=== PATIENT | male | born 1945 | race Caucasian/White ===

== ENCOUNTER → 2020-08-16 09:28 | Outpatient (BNVA) | payer MEDICARE, SELFPAY | PROVIDERS: PCP Internal Medicine; Visit Provider Internal Medicine | DX: Z86.73 Personal history of transient ischemic attack (TIA), and cerebral infarction without residual deficits (principal); Z51.81 Encounter for therapeutic drug level monitoring; Z79.01 Long term (current) use of anticoagulants | CPT/HCPCS: 85610 ==

== ENCOUNTER → 2020-09-13 09:29 | Outpatient (BNVA) | payer MEDICARE, BC, SELFPAY | PROVIDERS: PCP Internal Medicine; Visit Provider Internal Medicine | DX: Z86.73 Personal history of transient ischemic attack (TIA), and cerebral infarction without residual deficits (principal); Z51.81 Encounter for therapeutic drug level monitoring; Z79.01 Long term (current) use of anticoagulants | CPT/HCPCS: 85610; 99211 ==

== ENCOUNTER → 2020-10-12 09:41 | Outpatient (BNVA) | payer MEDICARE, BC, SELFPAY | PROVIDERS: PCP Internal Medicine; Visit Provider Internal Medicine | DX: Z86.73 Personal history of transient ischemic attack (TIA), and cerebral infarction without residual deficits (principal); Z51.81 Encounter for therapeutic drug level monitoring; Z79.01 Long term (current) use of anticoagulants | CPT/HCPCS: 85610; 99211 ==

== ENCOUNTER → 2020-11-09 09:50 | Outpatient (BNVA) | payer MEDICARE, BC, SELFPAY | PROVIDERS: PCP Internal Medicine; Visit Provider Internal Medicine | DX: Z86.73 Personal history of transient ischemic attack (TIA), and cerebral infarction without residual deficits (principal); Z79.01 Long term (current) use of anticoagulants; Z51.81 Encounter for therapeutic drug level monitoring | CPT/HCPCS: 85610; 99211 ==

== ENCOUNTER 2020-12-01 | Outpatient (REF) | payer MEDICARE, BC, SELFPAY | END 2020-12-01 00:01 | disposition home or self-care (01) | LOC: HO.VC | PROVIDERS: Visit Provider Internal Medicine | DX: Z23 Encounter for immunization (principal) | CPT/HCPCS: 0011A ==

== ENCOUNTER → 2020-12-21 09:45 | Outpatient (BNVA) | payer MEDICARE, BC, SELFPAY | PROVIDERS: PCP Internal Medicine; Visit Provider Internal Medicine | DX: Z86.73 Personal history of transient ischemic attack (TIA), and cerebral infarction without residual deficits (principal); Z51.81 Encounter for therapeutic drug level monitoring; Z79.01 Long term (current) use of anticoagulants | CPT/HCPCS: 85610; 99211 ==

== ENCOUNTER 2020-12-28 | Outpatient (REF) | payer MEDICARE, BC, SELFPAY | END 2020-12-28 00:01 | disposition home or self-care (01) | LOC: HO.VC | PROVIDERS: Visit Provider Internal Medicine | DX: Z23 Encounter for immunization (principal) | CPT/HCPCS: 0012A ==

== ENCOUNTER → 2021-01-18 09:57 | Outpatient (BNVA) | payer MEDICARE, BC, SELFPAY | PROVIDERS: PCP Internal Medicine; Visit Provider Internal Medicine | DX: Z86.73 Personal history of transient ischemic attack (TIA), and cerebral infarction without residual deficits (principal); Z51.81 Encounter for therapeutic drug level monitoring; Z79.01 Long term (current) use of anticoagulants | CPT/HCPCS: 85610; 99211 ==

== ENCOUNTER 2021-01-25 11:38 | Outpatient (REF) | payer MEDICARE, BC, SELFPAY ==
[2021-01-25 13:38] LABS: Thyroid Stimulating Hormone 1.54 uIU/mL (0.32-4.0)
== END 2021-01-25 11:39 | disposition home or self-care (01) ==
LOC: HO.10HDL 11:38
PROVIDERS: Visit Provider Internal Medicine
DX: E03.9 Hypothyroidism, unspecified (principal)
CPT/HCPCS: 36415; 84443

== ENCOUNTER → 2021-02-15 09:59 | Outpatient (BNVA) | payer MEDICARE, BC, SELFPAY | PROVIDERS: PCP Internal Medicine; Visit Provider Internal Medicine | DX: Z86.73 Personal history of transient ischemic attack (TIA), and cerebral infarction without residual deficits (principal); Z79.01 Long term (current) use of anticoagulants; Z51.81 Encounter for therapeutic drug level monitoring | CPT/HCPCS: 85610; 99211 ==

== ENCOUNTER → 2021-03-15 09:46 | Outpatient (BNVA) | payer MEDICARE, BC, SELFPAY | PROVIDERS: PCP Internal Medicine; Visit Provider Internal Medicine | DX: Z86.73 Personal history of transient ischemic attack (TIA), and cerebral infarction without residual deficits (principal); Z51.81 Encounter for therapeutic drug level monitoring; Z79.01 Long term (current) use of anticoagulants | CPT/HCPCS: 85610; 99211 ==

== ENCOUNTER 2021-04-19 09:27 | Outpatient (REF) | payer MEDICARE, BC, SELFPAY ==
[2021-04-19 13:21] LABS: MANUAL DIFF FLAG NO
[2021-04-19 13:32] LABS: Basophils Percent Auto 0.4 % (0-2); Eosinophils Absolute Auto 0.1 X10*3/uL (0.0-0.4); Eosinophils Percent Auto 1.3 % (0-4); Hematocrit 38.6 % (42-52); Hemoglobin 12.5 g/dl (14.0-18.0); Imm Gran Abs Auto 0.03 X10*3/uL (0.00-0.03); Imm Gran Pct Auto 0.4 % (0.0-0.4); Lymphocytes Absolute Auto 1.5 X10*3/uL (1.2-4.9); Lymphocytes Percent Auto 17.7 % (20-40); Mean Corpuscular HGB Conc 32.4 g/dl (31.0-36.0); Mean Corpuscular Hemoglobin 29.6 pg (27.0-33.0); Mean Corpuscular Volume 91.3 fL (80-98); Mean Platelet Volume 11.9 fL (9.4-12.4); Monocytes Absolute Auto 0.8 X10*3/uL (0.1-1.2); Monocytes Percent Auto 9.4 % (2-11); Neutrophils Absolute Auto 6.1 X10*3/uL (2.0-8.3); Neutrophils Percent Auto 70.8 % (45-73); Platelet Count 189 X10*3/uL (160-400); Red Blood Count 4.23 X10*6/uL (4.60-5.80); Red Cell Distribution Width 13.2 % (11.0-16.0); White Blood Count 8.5 X10*3/uL (4.8-10.8)
[2021-04-19 14:01] LABS: Alanine Aminotransferase 11 U/L (0-40); Albumin Level 3.8 g/dL (3.5-5.0); Alkaline Phosphatase 60 U/L (39-117); Anion Gap 12 (12-20); Aspartate Amino Transferase 19 U/L (5-37); Bilirubin Total 0.5 mg/dL (0.0-1.0); Blood Urea Nitrogen 15 mg/dL (9-16); Calcium 8.5 mg/dL (8.4-10.2); Carbon Dioxide 26 mmol/L (22-29); Chloride 106 mmol/L (96-108); Cholesterol 126 mg/dL; Estimated Glomerular Filt Rate > 60; Glucose Fasting 97 mg/dL (60-99); HDL Cholesterol 39 mg/dL; LDL Cholesterol Calculated 77 mg/dl; Potassium 4.2 mmol/L (3.3-5.1); Sodium 140 mmol/L (135-145); Total Protein 6.5 g/dL (6.5-8.0); Triglycerides 54 mg/dL
== END 2021-04-19 09:28 | disposition home or self-care (01) ==
LOC: HO.10HDL 09:27
PROVIDERS: PCP Internal Medicine; Visit Provider Internal Medicine
DX: Z86.73 Personal history of transient ischemic attack (TIA), and cerebral infarction without residual deficits (principal); Z00.00 Encounter for general adult medical examination without abnormal findings; E11.9 Type 2 diabetes mellitus without complications; Z51.81 Encounter for therapeutic drug level monitoring; Z79.01 Long term (current) use of anticoagulants
CPT/HCPCS: 36415; 80053; 80061; 85025; 85610; 99211

== ENCOUNTER → 2021-04-26 09:39 | Outpatient (BNVA) | payer MEDICARE, BC, SELFPAY | PROVIDERS: PCP Internal Medicine; Visit Provider Internal Medicine | DX: Z86.73 Personal history of transient ischemic attack (TIA), and cerebral infarction without residual deficits (principal); Z51.81 Encounter for therapeutic drug level monitoring; Z79.01 Long term (current) use of anticoagulants | CPT/HCPCS: 85610; 99211 ==

== ENCOUNTER → 2021-05-10 09:57 | Outpatient (BNVA) | payer MEDICARE, BC, SELFPAY | PROVIDERS: PCP Internal Medicine; Visit Provider Internal Medicine | DX: Z86.73 Personal history of transient ischemic attack (TIA), and cerebral infarction without residual deficits (principal); Z51.81 Encounter for therapeutic drug level monitoring; Z79.01 Long term (current) use of anticoagulants | CPT/HCPCS: 85610; 99211 ==

== ENCOUNTER 2021-05-17 10:25 | Outpatient (REF) | payer MEDICARE, BC, SELFPAY ==
[2021-05-17 17:47] LABS: Urine Cytology See Pathology rpt
== END 2021-05-17 10:26 | disposition home or self-care (01) ==
LOC: HO.LNP 10:25
PROVIDERS: PCP Internal Medicine
DX: N40.1 Benign prostatic hyperplasia with lower urinary tract symptoms (principal); R35.1 Nocturia; R35.0 Frequency of micturition; R31.9 Hematuria, unspecified; I69.391 Dysphagia following cerebral infarction; F17.210 Nicotine dependence, cigarettes, uncomplicated
CPT/HCPCS: 51798; 88112; 99202

== ENCOUNTER → 2021-05-31 10:11 | Outpatient (BNVA) | payer MEDICARE, BC, SELFPAY | PROVIDERS: PCP Internal Medicine; Visit Provider Internal Medicine | DX: Z86.73 Personal history of transient ischemic attack (TIA), and cerebral infarction without residual deficits (principal); Z51.81 Encounter for therapeutic drug level monitoring; Z79.01 Long term (current) use of anticoagulants | CPT/HCPCS: 85610; 99211 ==

== ENCOUNTER → 2021-06-21 10:29 | Outpatient (BNVA) | payer MEDICARE, BC, SELFPAY | PROVIDERS: PCP Internal Medicine; Visit Provider Internal Medicine | DX: Z86.73 Personal history of transient ischemic attack (TIA), and cerebral infarction without residual deficits (principal); Z51.81 Encounter for therapeutic drug level monitoring; Z79.01 Long term (current) use of anticoagulants | CPT/HCPCS: 85610; 99211 ==

== ENCOUNTER 2021-06-25 08:51 | Emergency (ER) | payer MEDICARE, BC, SELFPAY ==
--- NOTE | ~2021-06-25 | CT_ITS ---
EXAMINATION: CT ABDOMEN AND PELVIS WITHOUT CONTRAST CLINICAL INFORMATION: Rule out abdominal aortic aneurysm COMPARISON: None TECHNIQUE: Multidetector volumetric imaging was performed from the superior aspect of the liver through the pubic symphysis. Sagittal and coronal reformatted images were obtained on the technologist's workstation. This CT examination was performed using dose optimization techniques as appropriate, variously including the following: *Automated exposure control *Adjustment of mA and/or kV according to patient size (this includes techniques or standardized protocols for targeted exams where dose is matched to indication/reason for exam; i.e. extremities or head) *Use of iterative reconstruction technique DLP: 954.32 mGy-cm FINDINGS: LUNG BASES: The visualized lung bases are unremarkable. No pleural or pericardial effusion. LIVER, GALLBLADDER, AND BILIARY TREE: The liver is normal in size, shape, and attenuation. No focal hepatic lesion or biliary ductal dilatation is present. The gallbladder is unremarkable with no evidence of radiopaque gallstones, gallbladder wall thickening, or obvious pericholecystic inflammatory changes. PANCREAS: Unremarkable. SPLEEN: Unremarkable. ADRENAL GLANDS: Unremarkable. KIDNEYS AND URETERS: The right kidney is normal in size, shape, and attenuation. No hydronephrosis, hydroureter, or calculi seen. No perinephric stranding. The left kidney is displaced anteriorly by large retroperitoneal hematoma. No hydronephrosis. No collecting system calculi. Region of thinning from probable infarct noted. BLADDER: Decompressed GASTROINTESTINAL TRACT: The small and large bowel are unremarkable. The appendix is unremarkable. Small amount of free fluid seen within the pelvis. ABDOMINAL WALL: No significant hernia is appreciated. LYMPH NODES: Normal. VASCULAR: There is a 10 x 9 cm infrarenal abdominal aortic aneurysm approximately 12 cm in length present with calcified aortoiliac plaque. The abdominal aortic aneurysm appears ruptured along its left wall with a large retroperitoneal hematoma present which is displacing retroperitoneal structures with the kidney being displaced anteriorly. The hematoma measures approximately 12 x 8.5 x 17 cm in size. PELVIC VISCERA: Prostate calcification present. OSSEOUS STRUCTURES: No suspicious destructive bony lesions identified. There is multilevel degenerative disc disease present. CT/CT abdomen pelvis wo con IMPRESSION: 10 x 9 cm ruptured infrarenal abdominal aortic aneurysm with large left retroperitoneal hematoma. This critical result was discussed with Dr. Linda at 9:40 AM on June 25, 2021 and it was ascertained that the content and urgency of the report was understood at the time of direct communication.
--- NOTE | ~2021-06-25 | CT_ITS ---
EXAMINATION: CT CHEST WITHOUT CONTRAST CLINICAL INFORMATION: Shortness of breath. COMPARISON: None TECHNIQUE: Multidetector volumetric CT imaging of the chest was done. Axial MIP volume rendering provided. Sagittal and coronal reformatted images were obtained. This CT examination was performed using dose optimization techniques as appropriate, variously including the following: *Automated exposure control *Adjustment of mA and/or kV according to patient size (this includes techniques or standardized protocols for targeted exams where dose is matched to indication/reason for exam; i.e. extremities or head) *Use of iterative reconstruction technique DLP: 424.9 mGy-cm FINDINGS: EARTH MOVING MACHINE OPERATOR: Unremarkable. LUNGS: The lungs are clear with no evidence of inflammation or nodules. Biapical pleuroparenchymal scar is present. MEDIASTINUM: Atherosclerotic disease including coronary artery calcifications are present. Mild ascending thoracic aneurysm is noted. PLEURA: There is no pleural effusion. No pleural mass or thickening. AXILLA: No lymphadenopathy. UPPER ABDOMEN: Abnormal. Evidence of abdominal aortic rupture is present. This refer to the separate CT of the abdomen report for full details. OSSEOUS STRUCTURES: Unremarkable. CT/CT chest wo con IMPRESSION: No acute intrathoracic pathology. Evidence of abdominal aortic rupture is present within the visualized part of the upper abdomen. Please refer to the separate CT of the abdomen report for full details.
--- NOTE | ~2021-06-25 | CT_ITS ---
EXAMINATION: CT HEAD WITHOUT CONTRAST (STROKE PROTOCOL) CLINICAL INFORMATION: Stroke protocol. COMPARISON: August 19, 2018 TECHNIQUE: Contiguous axial imaging was performed from the skull base to vertex without intravenous administration of contrast. This CT examination was performed using dose optimization techniques as appropriate, variously including the following: *Automated exposure control *Adjustment of mA and/or kV according to patient size (this includes techniques or standardized protocols for targeted exams where dose is matched to indication/reason for exam; i.e. extremities or head) *Use of iterative reconstruction technique DLP: 750 mGy-cm FINDINGS: There is no intracranial hemorrhage, hematoma, or extra-axial fluid collection. The ventricles are normal in size. There is no hydrocephalus, edema, or mass effect. 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 Small superior left cerebellar infarct again seen. Lacunar infarct involving the anterior limb of the right internal capsule again seen.. There is no acute infarct or mass lesion. The calvarium appears intact. There is no pneumocephalus or orbital emphysema. The visualized sinuses and middle ears and mastoid air cells show no significant mucosal thickening. There are no air-fluid levels. CT/CT head for stroke IMPRESSION: No acute intracranial pathology. 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 This critical result was discussed with Dr. Buitrago at 9:10 AM hours on June 25, 2021. It was ascertained that the content and urgency of the report was understood at the time of direct communication.
[2021-06-25 09:03] LABS: Glucose, Whole Blood 161 mg/dL (60-115)
[2021-06-25] MEDS: 0.9 % Sodium Chloride 1,000 ML 999 ML IVCONT (09:05)
--- NOTE | 2021-06-25 09:17 | PC.NURSE ---
@0930 [facility] PT TX LINE @ DR HEBERT REQUEST TIMUR ANSWERS,TAKES PT NFO, AND ASKS TO SPEAK WITH DR HEBERT, DR HEBERT TAKES OVER CALL @[phone] DR HEBERT REQUEST CALL OUT TO [facility] FOR [facility] TRANSPORT TO [facility] ER
[2021-06-25 09:19] VITALS: BP 108/74; PULSE 72; RESP 16; BMI 24.0
[2021-06-25 09:23] LABS: Prothrombin Time Whole Bld POC 25.1 sec (11.1-13.5); ~PT, ~INR - Anti Coag Clinic 2.1 (0.9-1.1)
--- NOTE | 2021-06-25 09:24 | PC.NURSE ---
@ [phone] CALL OUT TO [facility] TO CHECK ETA @ REQUEST OF JORJE LA TELLS ME THEY ARE ON SCENE
[2021-06-25 09:29] LABS: MANUAL DIFF FLAG NO
[2021-06-25] MEDS: fentaNYL citrate/PF 100 MCG/2 ML VIAL 50 MCG IVPUSH (09:29)
--- NOTE | 2021-06-25 09:36 | ED.GENADULT ---
HPI - General Adult General Chief complaint: Abdominal Pain Stated complaint: stroke Time Seen by Provider: 06/25/21 08:56 Source: EMS Mode of arrival: EMS History of Present Illness HPI narrative: The patient arrived via ambulance to [place] with a question of a CVA, the patch was acute CVA upon arrival he was diaphoretic ,color ashen,abdomen exam showed tenderness in the left. The patient was directed to the CT scanner right away and the scan showed large ruptured AAA Onset (ago): hour(s) (1) Location: abdomen Radiation: abdomen and flank Severity: severe Severity scale (1-10): 8 Quality: aching Pain Consistency: constant Exacerbating factors: none Related Data Home Medications Medication Instructions Recorded Confirmed ketorolac 0.5 % eye drops 0 drp OPHTHALMIC (EYE) 09/13/20 05/19/21 aspirin 81 mg tablet,delayed 81 mg PO DAILY 01/25/21 05/19/21 release (Adult Low Dose Aspirin) multivit,calc,mins-folic 240 1 tab PO DAILY 01/25/21 05/19/21 mcg-vit K1 30 mcg-lycopene 300 mcg tablet (One-A-Day Men's Complete) Previous Rx's Medication Instructions Recorded lisinopril 20 mg tablet 20 mg PO DAILY #90 tab 04/06/21 lovastatin 40 mg tablet 40 mg PO DAILY #90 tab 04/06/21 warfarin 5 mg tablet 5 mg PO DAILY #90 tab 04/06/21 Allergies Allergy/AdvReac Type Severity Reaction Status Date / Time No Known Allergies Allergy Verified 06/21/21 10:30 [No Known Allergies*] Review of Systems Review of Systems: Yes all other systems are reviewed and are negative Cardiovascular: Cardiovascular: Reports no additional cardiovascular complaints Neurologic: Reports system reviewed and no additional complaints, except as documented REPLACED BY [facility] Past Medical History Medical History Atrial fibrillation Hypertension Surgical History H/O left knee surgery H/O rectal polypectomy History of surgery Family History Family History Father Lung cancer Mother Breast cancer Social History Social History Housing: House Alcohol intake: current Alcohol intake frequency: holidays/special occasions only Patient Tobacco Use Status: Current everyday Tobacco user Tobacco use type: Cigarette Cigarettes Per Day: 20 e-Cigarette/Vaping Use: Never Used Second Hand Smoke Exposure: No Advance Directives: No Advance Directives Information Provided: No service: No Current occupational status: retired Physical Exam Vital Signs: Vital Signs: Last Vital Signs Pulse 72 06/25/21 09:19 Resp 16 06/25/21 09:19 BP 108/74 06/25/21 09:19 Body Mass Index 24.0 Const: General: alert, anxious and diaphoretic HENMT: Head: Yes normal to inspection Neck: Neck: Yes normal visual inspection and Yes full ROM Thyroid: Thyroid normal Carotids: normal carotid upstroke Chest: Chest palpation & inspection: normal inspection of the chest Resp: Effort & Inspection: normal respiratory effort Auscultation: clear to auscultation bilaterally Cardio: Jugular venous distension: no JVD Rate: regular rate Rhythm: regular rhythm GI: Inspection: Yes distended Palpation (GI): Tenderness to palpation present (GI) Auscultation: normal bowel sounds Skin: General skin exam: no rashes or lesions noted and elasticity normal Lesions: no lesions Rashes: no rashes Course Course Course Narrative: I review personally the scan while still in CT, CT showed to my reading 10 cm AAA we immediately called the health promotion officer to transport to [facility];I called also [facility] Emergency Department he was accepted in transfer by Dr. Belle at the time of the transfer he was awake ,alert with a good blood pressure, he is anticoagulated with Coumadin we were going to give him Kcentra but was not available right away and we did not want to delay the transfer to wait 10 more minutes in order to the pharmacy to mix the Kcentra,given the life threatening Emergency Medical Decision Making Lab Data Result diagrams: 06/25/21 09:24 06/25/21 09:24 Labs: Lab Results 06/25/21 06/25/21 06/25/21 Range/Units 08:59 09:19 09:24 WBC 16.0 H (4.8-10.8) X10*3/uL RBC 3.69 L (4.60-5.80) X10*6/uL Hgb 11.2 L (14.0-18.0) g/dl Hct 34.3 L (42-52) % MCV 93.0 (80-98) fL MCH 30.4 (27.0-33.0) pg MCHC 32.7 (31.0-36.0) g/dl RDW 13.7 (11.0-16.0) % Plt Count 201 (160-400) X10*3/uL MPV 11.4 (9.4-12.4) fL Immature Gran % (Auto) 0.8 H (0.0-0.4) % Neut % (Auto) 83.5 H (45-73) % Lymph % (Auto) 9.8 L (20-40) % [place] % (Auto) 5.1 (2-11) % Eos % (Auto) 0.5 (0-4) % Baso % (Auto) 0.3 (0-2) % Lymph # (Auto) 1.6 (1.2-4.9) X10*3/uL [place] # (Auto) 0.8 (0.1-1.2) X10*3/uL Eos # (Auto) 0.1 (0.0-0.4) X10*3/uL Baso # (Auto) 0.0 (0.0-0.2) X10*3/uL Abs Immat Gran (auto) 0.12 H (0.00-0.03) X10*3/uL Absolute Neuts (auto) 13.4 H (2.0-8.3) X10*3/uL Absolute Nucleated RBC 0.000 (0.0-0.012) X10*3/uL Nucleated RBC % (auto) 0.0 (0.0-0.2) /100WBC PT (9.9-13.0) SEC Whole Blood PT 25.1 H (11.1-13.5) sec INR (0.9-1.1) Whole Blood INR 2.1 H (0.9-1.1) Sodium (135-145) mmol/L Potassium (3.3-5.1) mmol/L Chloride (96-108) mmol/L Carbon Dioxide (22-29) mmol/L Anion Gap (12-20) BUN (9-16) mg/dL Creatinine (0.5-1.4) mg/dL Estim Creat Clear Calc Estimated GFR POC Glucose 161 H (60-115) mg/dL Random Glucose (60-115) mg/dL Calcium (8.4-10.2) mg/dL Total Bilirubin (0.0-1.0) mg/dL AST (5-37) U/L ALT (0-40) U/L Alkaline Phosphatase (39-117) U/L Troponin I High Sens (<3.5-35.0) ng/L Total Protein (6.5-8.0) g/dL Albumin (3.5-5.0) g/dL Lipase (8-78) U/L 06/25/21 06/25/21 06/25/21 Range/Units 09:24 09:25 09:25 WBC (4.8-10.8) X10*3/uL RBC (4.60-5.80) X10*6/uL Hgb (14.0-18.0) g/dl Hct (42-52) % MCV (80-98) fL MCH (27.0-33.0) pg MCHC (31.0-36.0) g/dl RDW (11.0-16.0) % Plt Count (160-400) X10*3/uL MPV (9.4-12.4) fL Immature Gran % (Auto) (0.0-0.4) % Neut % (Auto) (45-73) % Lymph % (Auto) (20-40) % [place] % (Auto) (2-11) % Eos % (Auto) (0-4) % Baso % (Auto) (0-2) % Lymph # (Auto) (1.2-4.9) X10*3/uL [place] # (Auto) (0.1-1.2) X10*3/uL Eos # (Auto) (0.0-0.4) X10*3/uL Baso # (Auto) (0.0-0.2) X10*3/uL Abs Immat Gran (auto) (0.00-0.03) X10*3/uL Absolute Neuts (auto) (2.0-8.3) X10*3/uL Absolute Nucleated RBC (0.0-0.012) X10*3/uL Nucleated RBC % (auto) (0.0-0.2) /100WBC PT 30.5 H (9.9-13.0) SEC Whole Blood PT (11.1-13.5) sec INR 2.6 H (0.9-1.1) Whole Blood INR (0.9-1.1) Sodium 141 (135-145) mmol/L Potassium 4.3 (3.3-5.1) mmol/L Chloride 107 (96-108) mmol/L Carbon Dioxide 26 (22-29) mmol/L Anion Gap 12 (12-20) BUN 20 H (9-16) mg/dL Creatinine 1.20 (0.5-1.4) mg/dL Estim Creat Clear Calc 52.3 Estimated GFR 59 POC Glucose (60-115) mg/dL Random Glucose 230 H (60-115) mg/dL Calcium 8.3 L (8.4-10.2) mg/dL Total Bilirubin 0.3 (0.0-1.0) mg/dL AST 16 (5-37) U/L ALT 13 (0-40) U/L Alkaline Phosphatase 52 (39-117) U/L Troponin I High Sens 9.1 (<3.5-35.0) ng/L Total Protein 5.7 L (6.5-8.0) g/dL Albumin 3.4 L (3.5-5.0) g/dL Lipase 23 (8-78) U/L Imaging Data CT scan - abdomen: Radiologist's impression: VASCULAR: There is a 10 x 9 cm infrarenal abdominal aortic aneurysm approximately 12 cm in length present with calcified aortoiliac plaque. The abdominal aortic aneurysm appears ruptured along its left wall with a large retroperitoneal hematoma present which is displacing retroperitoneal structures with the kidney being displaced anteriorly. The hematoma measures approximately 12 x 8.5 x 17 cm in size. PELVIC VISCERA: Prostate calcification present.? OSSEOUS STRUCTURES: No suspicious destructive bony lesions identified. There is multilevel degenerative disc disease present. CT/CT abdomen pelvis wo con IMPRESSION: 10 x 9 cm ruptured infrarenal abdominal aortic aneurysm with large left retroperitoneal hematoma. ? This critical result was discussed with Dr. Linda at 9:40 AM on June 25, 2021 and it was ascertained that the content and urgency of the report was understood at the time of direct communication. ? Critical Care Time Critical Care Time Total Critical Care Time: 45 Attestation: time spent with pt /[facility]/speaking with EMS/reviewing study Discharge Plan Discharge Clinical Impression: AAA (abdominal aortic aneurysm, ruptured) Patient Disposition: Xfer [facility] Transfer Details: Pt has rupture AAA 10 cm needed tertiary center Prescriptions: No [facility] lisinopril 20 mg tablet 20 mg PO DAILY Qty: 90 RF: 8 lovastatin 40 mg tablet 40 mg PO DAILY Qty: 90 RF: 8 warfarin 5 mg tablet 5 mg PO DAILY Qty: 90 RF: 8 One-A-Day Men's Complete 240 mcg-30 mcg- 300 mcg tablet 1 tab PO DAILY RF: 0 aspirin [Adult Low Dose Aspirin] 81 mg tablet,delayed release (DR/EC) 81 mg PO DAILY RF: 0 ketorolac 0.5 % drops 0 drp ophthalmic (eye) RF: 0 Interventions: Acute Care Transfer Worksheet (ED) Last Done: 06/25/21 09:45 Discharge Date/Time: 06/25/21 09:40
[2021-06-25 09:38] LABS: INTERNATIONAL NORM RATIO 2.6 (0.9-1.1); Prothrombin Time 30.5 SEC (9.9-13.0)
--- NOTE | 2021-06-25 09:44 | PC.NURSE ---
Pt transfered to [facility] via EMS. Pt was stable at the time of transfer but in sevre pain. Given fentanyl prior to transfer out. Kcentra had been ordered by physician once an INR and weight were determined. The Kcentra was not delivered to the unit in a time frame that the MD felt was appropriate. According to pharmacy they needed 10 more minutes to finish mixing the drug. Per this was not an acceptable time frame and the patinet should be transfered without delay due to the medication,
[2021-06-25 09:52] LABS: Basophils Percent Auto 0.3 % (0-2); Eosinophils Absolute Auto 0.1 X10*3/uL (0.0-0.4); Eosinophils Percent Auto 0.5 % (0-4); Hematocrit 34.3 % (42-52); Hemoglobin 11.2 g/dl (14.0-18.0); Imm Gran Abs Auto 0.12 X10*3/uL (0.00-0.03); Imm Gran Pct Auto 0.8 % (0.0-0.4); Lymphocytes Absolute Auto 1.6 X10*3/uL (1.2-4.9); Lymphocytes Percent Auto 9.8 % (20-40); Mean Corpuscular HGB Conc 32.7 g/dl (31.0-36.0); Mean Corpuscular Hemoglobin 30.4 pg (27.0-33.0); Mean Platelet Volume 11.4 fL (9.4-12.4); Monocytes Absolute Auto 0.8 X10*3/uL (0.1-1.2); Monocytes Percent Auto 5.1 % (2-11); Neutrophils Absolute Auto 13.4 X10*3/uL (2.0-8.3); Neutrophils Percent Auto 83.5 % (45-73); Platelet Count 201 X10*3/uL (160-400); Red Blood Count 3.69 X10*6/uL (4.60-5.80); Red Cell Distribution Width 13.7 % (11.0-16.0)
[2021-06-25 10:11] LABS: Alanine Aminotransferase 13 U/L (0-40); Albumin Level 3.4 g/dL (3.5-5.0); Alkaline Phosphatase 52 U/L (39-117); Anion Gap 12 (12-20); Aspartate Amino Transferase 16 U/L (5-37); Bilirubin Total 0.3 mg/dL (0.0-1.0); Blood Urea Nitrogen 20 mg/dL (9-16); Calcium 8.3 mg/dL (8.4-10.2); Carbon Dioxide 26 mmol/L (22-29); Chloride 107 mmol/L (96-108); Creatinine Clr Calc Pharmacy 52.3; Estimated Glomerular Filt Rate 59; Glucose Random 230 mg/dL (60-115); Lipase 23 U/L (8-78); Potassium 4.3 mmol/L (3.3-5.1); Sodium 141 mmol/L (135-145); Total Protein 5.7 g/dL (6.5-8.0)
[2021-06-25 10:13] LABS: Troponin-I High Sensitivity 9.1 ng/L (<3.5-35.0)
== END 2021-06-25 09:40 | disposition short-term general hospital (02) ==
PROVIDERS: Emergency Provider Emergency Medicine
DX: I71.3 Abdominal aortic aneurysm, ruptured (principal); I10 Essential (primary) hypertension; I48.91 Unspecified atrial fibrillation; F17.210 Nicotine dependence, cigarettes, uncomplicated; Z79.82 Long term (current) use of aspirin; Z79.01 Long term (current) use of anticoagulants; Z79.02 Long term (current) use of antithrombotics/antiplatelets; Z79.899 Other long term (current) drug therapy
CPT/HCPCS: 36415; 70450; 71250; 74176; 80053; 82947; 83690; 84484; 85025; 85610; 96361; 96374; 96375; 99285; 99291; J3010